=== PATIENT | female | born 1940 | race Caucasian/White ===

== ENCOUNTER 2016-12-30 08:47 | Emergency (ER) | payer MEDICARE ==
[2016-12-30] MEDS ORDERED: Ondansetron ODT 4 MG TAB ONE (09:31)
[2016-12-30] MEDS ORDERED: oxyCODONE/Acetaminophen 5 mg/325 mg Tablet PO SCH (09:45)
--- NOTE | 2016-12-30 10:21 | RAD ---
4 VIEWS RIGHT KNEE: Date: 12/30/16 HISTORY: Trauma. Pain. COMPARISON: None. FINDINGS: There is severe tricompartmental degenerative change. There is diffuse bone demineralization. Vascul ar calcifications are noted. No acute fractures. IMPRESSION: 1. Severe tricompartmental degenerative change. 2. Diffuse bone demineralization. 3. Atherosclerosis. POS: [facility]
--- NOTE | 2016-12-30 10:22 | RAD ---
RIGHT ANKLE 3 VIEWS: Date: 12/30/16 HISTORY: Fall. Pain. COMPARISON: None. FINDINGS: There is diffuse bone demineralization. Vascular calcifications are identified. Ankle mortise is int act. No fracture. IMPRESSION: No fracture. POS: [facility]
--- NOTE | 2016-12-30 10:22 | RAD ---
RIGHT TIBIA AND FIBULA 2 VIEWS: Date: 12/30/16 HISTORY: Fall. Pain. COMPARISON: None. FINDINGS: There is diffuse bone demineralization. Vascular calcifications are noted. No fracture. No cortical irregularity or periosteal reaction. IMPRESSION: No fracture. POS: [facility]
== END 2016-12-30 10:41 | disposition home or self-care (01) ==
LOC: ERS 08:47
DX: M25.561 Pain in right knee (principal); I10 Essential (primary) hypertension; W18.30XA Fall on same level, unspecified, initial encounter
CPT/HCPCS: Q0162

== ENCOUNTER 2017-01-28 15:12 | Emergency (ER) | payer MEDICARE ==
--- NOTE | 2017-01-28 16:29 | RAD ---
RIGHT HIP 2 VIEWS: Date: 01/28/17 HISTORY: Pain. Fall. FINDINGS: Internal fixation hardware is identified. No complicated process or loosening. Post-traumatic changes from remote injury are noted. Old right inferior superior as well as left inferior pubic rami fractu res are identified. Vascular calcifications are noted. IMPRESSION: No post-traumatic change. POS: [facility]
== END 2017-01-28 17:00 | disposition home or self-care (01) ==
LOC: ERS 15:12
DX: S70.01XA Contusion of right hip, initial encounter (principal); I10 Essential (primary) hypertension; W01.0XXA Fall on same level from slipping, tripping and stumbling without subsequent striking against object, initial encounter; Z79.82 Long term (current) use of aspirin; Z79.899 Other long term (current) drug therapy; Y92.000 Kitchen of unspecified non-institutional (private) residence as the place of occurrence of the external cause

== ENCOUNTER 2017-02-04 08:33 | Outpatient (CLI) | payer MEDICARE ==
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
[2017-02-04] MEDS ORDERED: Iopamidol 370 76% 50 ML VIAL FS ONE (13:54)
[2017-02-04] MEDS ORDERED: Iopamidol 370 76% 100 ML VIAL ONE (13:54)
== END 2017-02-04 08:34 | disposition home or self-care (01) ==
LOC: CT 08:33
PROVIDERS: ATTEND Internal Medicine
DX: R63.0 Anorexia (principal); R29.6 Repeated falls; R53.83 Other fatigue; N28.89 Other specified disorders of kidney and ureter; N26.1 Atrophy of kidney (terminal); K57.30 Diverticulosis of large intestine without perforation or abscess without bleeding; Z98.890 Other specified postprocedural states
CPT/HCPCS: 74177

== ENCOUNTER 2017-03-22 11:17 | Day surgery (SDC) | payer MEDICARE ==
[2017-03-21 11:08] VITALS: BMI 18.3
[2017-03-22] MEDS ORDERED: Fentanyl 100 MCG/2 ML VIAL ONE (12:50)
[2017-03-22] MEDS ORDERED: PHENYLEPHRINE-NS 100 MCG/ML 10 ML SYRINGE ONE (13:22)
--- NOTE | 2017-03-22 17:41 | RAD ---
GASTROGRAFIN SWALLOW 03/22/17 HISTORY: Esophageal stenosis at 15 cm, status post dilatation. Evaluate for leak. FINDINGS: A gastrografin swallow was performed. Esophageal motility is normal. The contrast passed from the eso phagus into the stomach without difficulty. There is no evidence of leak of the contrast. No signific ant narrowing was appreciated on this exam. IMPRESSION: No evidence of leak of contrast from the esophagus. POS: [facility]
--- NOTE | 2017-03-22 18:18 | OP ---
SURGEON: Leo Prince M.D. PREPROCEDURE DIAGNOSES: 1. Abnormal weight loss of 15 pounds. 2. Colon cancer screening. POSTPROCEDURE DIAGNOSES: 1. Exam to cecum; adequate bowel preparation. 2. Mildly tortuous colon. 3. No polyps or neoplasms identified. 4. Small internal hemorrhoids. 5. Otherwise normal colonoscopy. PROCEDURE IN DETAIL: Written informed consent was obtained. Upon completion of the EGD, the patient was repositioned for the colonoscopy. A digital rectal exam was performed which revealed a small ex ternal skin tag. A Pentax video colonoscope was inserted through the anal canal and advanced under d irect visualization to the cecum. Position in the cecum was verified by clear identification of the appendiceal orifice and the ileocecal valve. The quality of the bowel preparation was adequate. Eac h colon segment was examined carefully as the colonoscope was slowly withdrawn from the cecum. Vascu lar pattern and haustral folds appeared normal. No polyp, diverticulum or neoplasm was identified. The colon was mildly tortuous throughout. The colonic mucosa appeared grossly intact. In the rectum , a retroflexed view demonstrated small internal hemorrhoids that were not actively bleeding. The co gee was decompressed as the colonoscope was removed from the patient. She was transferred to the day stay surgery area for post-procedure monitoring. RECOMMENDATIONS: 1. See EGD recommendations for further treatment plans. 2. Due to age and absence of colon polyps on this exam, I would not recommend another screening colo noscopy in 10 years.
--- NOTE | 2017-03-22 18:38 | OP ---
DATE OF PROCEDURE: 03/22/2017 TITLE OF PROCEDURE: Attempted esophagogastroduodenoscopy. PREOPERATIVE DIAGNOSES: 1. Abnormal weight loss. 2. 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 POSTOPERATIVE DIAGNOSES: 1. Exam to upper esophagus at 15 cm from the incisors. 2. Luminal narrowing at 15 cm, likely due to extensive scar tissue from previous surgeries for her s ubglottic stenosis. 3. Unable to safely traverse the stenotic area at 15 cm. 4. Complete EGD was not performed due to the stenosis. Procedure was prematurely terminated. PROCEDURE IN DETAIL: Written and informed consent was obtained. The patient was brought to the endo scopy suite. Total intravenous anesthesia was provided by Ms. Jelena Obrien CRNA. The patient was placed in the left lateral decubitus position. A bite block was inserted into the mouth. A Pent ax video diagnostic gastroscope was introduced into the oral cavity and attempt was made to intubate the esophagus. Due to significant luminal narrowing, presumably from scar tissue of her previous tra cheal surgeries, the endoscope could not be safely advanced distal to 15 cm. Because the lumen was n ot well visualized distal to this point, dilation was not attempted. The procedure was prematurely t erminated. The endoscope was completely withdrawn from the patient, and the bite block was removed. She was then repositioned for the planned colonoscopy. There were no immediate complications. RECOMMENDATIONS: 1. Obtain a barium esophagram to further delineate area of luminal narrowing in the upper esophagus. 2. Proceed with colonoscopy.
== END 2017-03-22 13:00 | disposition home or self-care (01) ==
LOC: SDC 11:17
PROVIDERS: ATTEND Internal Medicine Gastroenterology
PROC: 0DJD8ZZ Inspection of Lower Intestinal Tract, Via Natural or Artificial Opening Endoscopic (ICD-10-PCS; principal; 2017-03-22)
PROC: 0DJ08ZZ Inspection of Upper Intestinal Tract, Via Natural or Artificial Opening Endoscopic (ICD-10-PCS; 2017-03-22)
DX: R63.4 Abnormal weight loss (principal); K64.8 Other hemorrhoids; K22.2 Esophageal obstruction; L40.50 Arthropathic psoriasis, unspecified; I10 Essential (primary) hypertension; Z79.899 Other long term (current) drug therapy; Z91.048 Other nonmedicinal substance allergy status; Z96.1 Presence of intraocular lens; Z96.7 Presence of other bone and tendon implants; Z90.89 Acquired absence of other organs; Z98.890 Other specified postprocedural states
CPT/HCPCS: 74220; J3010

== ENCOUNTER 2017-04-03 10:39 | Outpatient (CLI) | payer MEDICARE ==
--- NOTE | 2017-04-03 14:42 | RAD ---
UPPER GI WITH SMALL BOWEL FOLLOW THROUGH. COMPARISON: 03/22/17. HISTORY: Abnormal weight loss. FINDINGS: A double-contrast upper GI and small bowel follow through were performed. Esophageal motility is nor mal. There is no evidence of esophageal stricture. The stomach is normal in appearance without mucosal abnormality. There is a moderate amount of gastr oesophageal reflux seen during the examination. The contrast passes from the stomach into the duodenum without difficulty. The contrast passes into the normal-appearing small bowel loops. The contrast passes through the small bowel loops into the r ight colon by 3 hours. No significant small bowel abnormality is seen. IMPRESSION: 1. Gastroesophageal reflux disease. 2. No significant small bowel abnormality. POS: [facility]
== END 2017-04-03 10:40 | disposition home or self-care (01) ==
LOC: RAD 10:39
PROVIDERS: ATTEND Physician Assistant Medical
DX: R63.4 Abnormal weight loss (principal); J38.6 Stenosis of larynx; K21.9 Gastro-esophageal reflux disease without esophagitis
CPT/HCPCS: 74249

== ENCOUNTER 2017-05-07 08:22 | Emergency (ER) | payer MEDICARE ==
[2017-05-07] MEDS ORDERED: Ondansetron ODT 4 MG TAB ONE (09:06)
--- NOTE | 2017-05-07 09:16 | RAD ---
LEFT WRIST THREE VIEWS: History: Wrist pain. FINDINGS: There is a predominately transverse but mildly comminuted fracture of the distal radius. Mild displac ement. There is also a fracture of the distal ulna which appears to represent an old healed fracture as call us formation is noted at this site. The ulnar styloid has been fractured and is ununited, age indeter minate. IMPRESSION: 1. Evidence of acute fracture of the distal radius. 2. Evidence of old healed fracture of the distal ulna. 3. Fracture of the ulnar styloid, age indeterminate. POS: [facility]
== END 2017-05-07 09:23 | disposition home or self-care (01) ==
LOC: ERS 08:22
DX: S52.502A Unspecified fracture of the lower end of left radius, initial encounter for closed fracture (principal); S52.612A Displaced fracture of left ulna styloid process, initial encounter for closed fracture; I10 Essential (primary) hypertension; Z79.82 Long term (current) use of aspirin; Z79.891 Long term (current) use of opiate analgesic; Z79.899 Other long term (current) drug therapy; W19.XXXA Unspecified fall, initial encounter
CPT/HCPCS: 29125; Q0162

== ENCOUNTER 2017-10-16 10:08 | Outpatient (CLI) | payer MEDICARE | END 2017-10-16 10:09 | disposition home or self-care (01) | LOC: BICMAMMO 10:08 | PROVIDERS: ATTEND Internal Medicine | DX: Z12.31 Encounter for screening mammogram for malignant neoplasm of breast (principal) | CPT/HCPCS: 77063; 77067 ==

== ENCOUNTER 2017-12-06 11:29 | Outpatient (CLI) | payer MEDICARE ==
--- NOTE | 2017-12-06 12:40 | RAD ---
LEFT RIB SERIES 3 VIEWS: INDICATION: History of fall with pain. FINDINGS: There is mild left pleural fluid. No discrete left rib fracture is seen. IMPRESSION: 1. No left rib fracture identified. 2. Mild left pleural fluid. POS: [facility]
--- NOTE | 2017-12-06 13:47 | RAD ---
2 VIEW CHEST: Date: 12/06/17 INDICATION: Pain. FINDINGS: There is a mild left pleural effusion. Interstitial prominence of the lungs with hyperinflation prese nt indicating COPD. Tracheostomy is in place. Cardiac silhouette is upper limits of normal in size. T here is partial visualization of fracture lucency at the lateral left clavicle. IMPRESSION: 1. COPD. 2. Mild left pleural effusion. 3. Left clavicular fracture. POS: [facility]
--- NOTE | 2017-12-06 13:48 | RAD ---
LEFT SHOULDER 3 VIEWS: INDICATION: Limited range of motion, fall with pain. FINDINGS: There is a left humeral prosthesis. No acute hardware complication is identified. There is lucency about the articulation at the scapular glenoid, likely chronic from pseudoarticulation with the prost hetic humeral head. There is a minimally displaced fracture at the lateral left clavicle. Incidenta l minimally displaced left rib fractures are present. IMPRESSION: Minimally displaced left lateral clavicular fracture. Minimally displaced left rib fractures. Telephone call of findings placed to Dr. Zoie Patino at the time of interpretation. POS: [facility]
== END 2017-12-06 11:30 | disposition home or self-care (01) ==
LOC: BICRAD 11:29
PROVIDERS: ATTEND Internal Medicine
DX: T84.89XA Other specified complication of internal orthopedic prosthetic devices, implants and grafts, initial encounter (principal); S42.032A Displaced fracture of lateral end of left clavicle, initial encounter for closed fracture; S22.42XA Multiple fractures of ribs, left side, initial encounter for closed fracture; J44.9 Chronic obstructive pulmonary disease, unspecified; Z79.899 Other long term (current) drug therapy; Z91.81 History of falling
CPT/HCPCS: 71046

== ENCOUNTER 2018-01-07 14:35 | Outpatient (CLI) | payer MEDICARE ==
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
--- NOTE | 2018-01-07 16:00 | RAD ---
PA AND LATERAL VIEWS CHEST: 01/07/18 HISTORY: Chest pain. Dyspnea. FINDINGS: The heart size is normal. There is a tracheostomy tube. The lungs are well expanded without lobar con solidation, pneumothoraces or pleural effusions. Small left pleural effusion noted on 12/06/17 has res olved. Chronic changes in the lung tatum are again seen. IMPRESSION: No acute cardiopulmonary process. POS: [facility]
--- NOTE | 2018-01-07 16:01 | RAD ---
LEFT CLAVICLE TWO VIEWS: 01/07/18 HISTORY: Chest pain. FINDINGS/IMPRESSION: There is incompletely healed fracture involving the distal clavicle compared to exam of 12/06/17. No significant change in alignment is seen. A left humeral prosthesis is present. POS: [facility]
--- NOTE | 2018-01-07 16:02 | RAD ---
LEFT SHOULDER THREE VIEWS: 01/07/18 HISTORY: Chest pain, left shoulder pain. FINDINGS/IMPRESSION: Comparison made with exam of 12/06/17. Left humeral head prosthesis remains in place. The fracture involving the distal clavicle is again se en with incomplete healing. POS: [facility]
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
== END 2018-01-07 14:36 | disposition home or self-care (01) ==
LOC: BICRAD 14:35
PROVIDERS: ATTEND Internal Medicine
DX: R07.9 Chest pain, unspecified (principal); R06.00 Dyspnea, unspecified; M81.0 Age-related osteoporosis without current pathological fracture; S42.402D Unspecified fracture of lower end of left humerus, subsequent encounter for fracture with routine healing; Z98.890 Other specified postprocedural states; V43.52XA Car driver injured in collision with other type car in traffic accident, initial encounter
CPT/HCPCS: 71046

== ENCOUNTER 2018-06-27 17:08 | Observation (INO) | payer MEDICARE ==
[~2018-06-27 17:08] MED LIST: Dexamethasone 20 MG/5 ML VIAL ONE; Ketorolac Tromethamine 30 MG/ML VIAL ONE; Lidocaine 1% PF 5 ML VIAL ONE; Ondansetron PF 4 MG/2 ML Vial ONE; PROPOFOL 200 MG/20 ML VIAL ONE; ePHEDrine 50 MG/ML VIAL ONE
[2018-06-27] MEDS ORDERED: Fentanyl 100 MCG/2 ML VIAL ONE ×5 (17:17→23:19)
[2018-06-27] MEDS ORDERED: CEFAZOLIN 1 GM VIAL ONE ×2 (17:53)
[2018-06-27 17:57] LABS: #Basophils 0.1 thou/uL (0.0-0.2); #Eosinphils 0.2 thou/uL (0.0-0.7); #Lymphocytes 2.3 thou/uL (1.20-3.40); #Monocytes 0.7 thou/uL (0.11-0.59); #Neutrophils 5.9 thou/uL (1.40-6.50); %Basophils 0.9 % (0.0-1.0); %Eosinophils 2.1 % (0.0-10.0); %Neutrophils 64.1 % (42.0-75.0); Hemoglobin 11.3 g/dL (12.0-16.0); Mean Corpuscular HGB CONC 33.8 g/dL (32.0-36.0); Mean Corpuscular Hemoglobin 31.8 pg (27.0-31.0); Mean Corpuscular Volume 94.2 fL (78.0-98.0); Mean Platelet Volume 7.2 fL (7.4-10.4); Platelet Count 542 thou/uL (130-400); RBC Distribution Width 13.5 % (11.5-14.5); Red Blood Cell (RBC) Count 3.56 mill/uL (4.20-5.40); White Blood Cell (WBC) Count 9.2 thou/uL (4.8-10.8)
[2018-06-27 18:04] LABS: PTT 26.1 SEC (22.9-36.1); Prothrombin Time 13.2 SEC (12.0-14.7)
[2018-06-27 18:25] LABS: ALT (SGPT) 11 U/L (8-55); AST (SGOT) 18 U/L (5-34); Albumin 4.2 g/dL (3.4-4.8); Alkaline Phosphatase 125 U/L (40-150); Anion Gap 14 mmol/L (10-20); BUN (Urea Nitrogen) 13 mg/dL (9.8-20.1); Bilirubin, Total 0.2 mg/dL (0.2-1.2); Calc. Creatinine Clearance 0 mL/min (70-130); Calcium 9.4 mg/dL (7.8-10.44); Carbon Dioxide 24 mmol/L (23-31); Chloride 101 mmol/L (98-107); Estimated GFR-MDRD 74; Globulin 2.4 g/dL (2.4-3.5); Glucose 109 mg/dL (83-110); Protein, Total 6.6 g/dL (6.0-8.3); Sodium 135 mmol/L (136-145)
--- NOTE | 2018-06-27 18:48 | RAD ---
PORTABLE CHEST ONE VIEW: 06/27/18 at 5:26 p.m. HISTORY: Fall. FINDINGS: Comparison made with exam of 01/07/18. The aorta is tortuous. Tracheostomy tube and left humeral head prosthesis are again seen. The heart s ize is normal. The aorta is tortuous. The lungs are expanded without focal areas of consolidation, pn eumothoraces, or pleural effusions. IMPRESSION: No acute process. POS: [facility]
[2018-06-27] MEDS ORDERED: Neomycin-Polymyxin 1 ML AMP ONE ×2 (19:08→19:48)
--- NOTE | 2018-06-27 19:38 | RAD ---
PORTABLE LEFT FOREARM ONE VIEW: 06/27/18 HISTORY: Trauma. There is an open fracture involving the distal radius and ulna. There are transverse mildly comminute d fractures involving the distal diaphysis of the radius and ulna. There is evidence of overriding fr agments and dorsal displacement of the distal fragments. The proximal fragments appear to break the s kin along the ventral surface. IMPRESSION: Mildly comminuted but predominantly transverse displaced open fractures distal radius and ulna. POS: [facility]
[2018-06-27] MEDS ORDERED: Famotidine/PF 20 mg/2ml Vial ONE (19:40)
[2018-06-27] MEDS ORDERED: Bupivacaine HCl 0.5%/Epinephrine 1:200,000/PF 30 ml Vial ONE (22:18)
[2018-06-27] MEDS ORDERED: Morphine 4 MG/ML VIAL SLOW IVP PRN (22:53)
[2018-06-27] MEDS ORDERED: Ondansetron PF 4 MG/2 ML Vial IVP PRN (22:53)
[2018-06-27] MEDS ORDERED: HYDROcodone/Acetaminophen 10/325 mg Tablet PO PRN (22:53)
[2018-06-27] MEDS ORDERED: traMADol HCl 50 MG TAB PO PRN (22:53)
[2018-06-27] MEDS ORDERED: Promethazine HCl 25 MG/ML VIAL IM PRN (22:54)
[2018-06-27] MEDS ORDERED: Ondansetron HCl/PF 4 MG/2 ML Vial IVP PRN (22:54)
[2018-06-27] MEDS ORDERED: Promethazine HCl 25 MG/ML VIAL SLOW IVP PRN (22:54)
[2018-06-27] MEDS ORDERED: Communication Order-Pharmacy FS SCH (23:00)
[2018-06-28 00:28] VITALS: BMI 21.4
[2018-06-28] MEDS: CEFAZOLIN 2 GM in Premix Bag 1 BAG IVPB SCH ×2 (03:23→12:46)
--- NOTE | 2018-06-28 04:55 | OP ---
DATE OF PROCEDURE: 06/27/2018 PREOPERATIVE DIAGNOSIS: Open left distal radius and ulna shaft fractures. POSTOPERATIVE DIAGNOSIS: Open left distal radius and ulna shaft fractures. PROCEDURES: 1. Irrigation and debridement of the left distal forearm. 2. Open reduction and internal fixation of the left distal radius and ulna. SURGEON: Dr. Lawrence Duarte. ANESTHESIA: General. TECHNIQUE: The patient had been given IV antibiotics in the emergency room. She was taken to the operating room. Satisfactory general anesthesia was performed. The left upper extremity was sterilely prepped and draped in the usual fashion. The patient was noted to have loss of motion in most of her joints including the shoulder, elbow and wrist secondary to psoriatic arthritis. The distal shaft of the ulna was protruding through the skin. An incision was made longitudinally, proximally and distally. The ulna and the ulnar aspect of the forearm were copiously irrigated with antibiotic solution using the high-speed rib sawyer. Additional incision was made on the volar radial aspect of the forearm over the distal radius. The radial artery was retracted radially and the flexor carpi radialis was retracted ulnarly. The volar aspect of the radius was periosteally elevated. The patient had some comminution in the radius as well as the ulna at the fractures. The fractures were completely off. They were manipulated, reduced and then internally fixed with a Synthes distal radial plate using 5-hole plate and 2.7 cortical screws and 2.7 locking screws. C-arm verified adequate alignment of the fracture and proper placement of the plate and screws. The ulna was then reduced and internally fixed using a 5-hole 3rd tubular plate and using 2.7 locking screws and 2.7 cortical screws. Once the fractures were stabilized in good position, the wounds again were copiously irrigated and closed using 2-0 Vicryl for the fat and subcutaneous tissues and the skin was closed with 3-0 Rapide. The wounds were then infiltrated with a total of 20 mL of 0.5% Marcaine with epinephrine. Sterile dressing was applied and patient was placed in a volar splint. TOTAL TOURNIQUET TIME: 120 minutes. ESTIMATED BLOOD LOSS: 150 mL. COMPLICATION: None. Job ID: [id number]
[2018-06-28 08:00] VITALS: TEMP 98.3
[2018-06-28] MEDS ORDERED: Aspirin 81 mg Enteric Coated Tablet PO SCH (09:00)
[2018-06-28] MEDS ORDERED: TETANUS AND DIPHTHERIA TOX/PF 0.5 ML DISP.SYRIN IM SCH (09:00)
[2018-06-28] MEDS ORDERED: Prevnar 13-Val Conj/PF 0.5 ML SYRINGE IM ONE (09:00)
--- NOTE | 2018-06-28 10:04 | RAD ---
LEFT WRIST 3 VIEWS: Date: 06/27/18 HISTORY: Intraoperative films. FINDINGS: A series of C-arm films show open reduction and internal fixation of distal radial and ulnar fracture with plate and screws. IMPRESSION: Open reduction and internal fixation of distal radial and ulnar fractures. POS: [facility]
[2018-06-28 11:54] VITALS: BP 125/67
--- NOTE | 2018-06-29 01:43 | DIS ---
DATE OF ADMISSION: 06/27/2018 DATE OF DISCHARGE: 06/28/2018 HISTORY OF PRESENT ILLNESS: Ms. Shah is a 78-year-old right-handed white female, who lives at home. She has psoriatic arthritis and has severe arthritis in pretty much all of her joints. The patient fell and had immediate deformity in the left forearm and wrist area with open fracture with ulna protruding through the skin. HOSPITAL COURSE: The patient was initially seen in the emergency room. She was given IV antibiotics. She was taken to the operating room, where she underwent irrigation, debridement, open reduction and internal fixation of the distal radius and ulna. She was placed in a splint, admitted for IV antibiotics and pain control. By the following day, the patient was able to control the pain with p.o. medication. The left hand had significant numbness in the ulnar nerve distribution prior to surgery and she states that it is feeling better this morning. Physical Therapy worked with the patient. The patient was able to independently get out of bed and was very stable. The patient remained afebrile. Vital signs remained stable. DISCHARGE DIAGNOSIS: Open distal radius and ulnar shaft fractures of the left forearm. DISCHARGE MEDICATIONS: 1. Bactrim DS one p.o. b.i.d., #14. 2. Tramadol 50 mg one every 6 hours as needed for pain, #50. FOLLOWUP: Follow up in my office in 6 days. DISCHARGE INSTRUCTIONS: The patient was asked to keep the left arm elevated and perform gentle range of motion of her fingers of the left hand. She will be provided with an arm sling. Job ID: [id number]
== END 2018-06-28 14:51 | disposition home or self-care (01) ==
LOC: ERS 17:08 → SDC/OP 19:18 → SJJU 23:02
PROVIDERS: ADMIT Orthopaedic Surgery; ATTEND Orthopaedic Surgery
PROC: 0PSJ04Z Reposition Left Radius with Internal Fixation Device, Open Approach (ICD-10-PCS; principal; 2018-06-27)
PROC: 0PSL04Z Reposition Left Ulna with Internal Fixation Device, Open Approach (ICD-10-PCS; 2018-06-27)
DX: S59.202A Unspecified physeal fracture of lower end of radius, left arm, initial encounter for closed fracture (principal); S52.252A Displaced comminuted fracture of shaft of ulna, left arm, initial encounter for closed fracture; I10 Essential (primary) hypertension; L40.50 Arthropathic psoriasis, unspecified; Z79.2 Long term (current) use of antibiotics; Z79.899 Other long term (current) drug therapy; Z93.0 Tracheostomy status; Z91.048 Other nonmedicinal substance allergy status; W19.XXXA Unspecified fall, initial encounter; Y92.009 Unspecified place in unspecified non-institutional (private) residence as the place of occurrence of the external cause
CPT/HCPCS: 25545; 25607; 71045; 73090; 73110; 80053; 85025; 85610; 85730; 86850; 86900; 86901; 93005; 96365; 96366; 96375; 96376; 99285; C1713 ×5; G0378; 36415; 90471; 90670; G0009; J0131; J0670; J0690; J1100; J1885; J2001; J2405; J2704; J3010; J3490; S0028

== ENCOUNTER 2018-11-27 12:38 | Outpatient (CLI) | payer MEDICARE ==
--- NOTE | 2018-11-27 13:58 | RAD ---
CHEST TWO VIEWS: HISTORY: Dyspnea. COMPARISON: 06/27/2018 FINDINGS: Tracheostomy tube in place. Biapical pleural thickening with minimal chronic appearing linear and int erstitial markings bilaterally. Heart size is normal. Stable left total shoulder replacement. IMPRESSION: Stable chronic changes. No significant new process. POS: [facility]
== END 2018-11-27 12:39 | disposition home or self-care (01) ==
LOC: RAD 12:38
PROVIDERS: ATTEND Internal Medicine Critical Care Medicine
DX: R06.00 Dyspnea, unspecified (principal)
CPT/HCPCS: 71046

== ENCOUNTER 2018-12-24 13:50 | Outpatient (CLI) | payer MEDICARE ==
--- NOTE | 2018-12-24 14:43 | BD ---
EXAM: Bone densitometry using DEXA HISTORY: 78 yo female. Screening for postmenopausal osteoporosis FINDINGS: L1--bone mineral density 0.760 g/sq cm; T score -2.1 ; Z score 0.2 L2--bone mineral density 0.940 g/sq cm; T score -0.8 ; Z score 1.7 L3--bone mineral density 1.108 g/sq cm; T score 0.2 ; Z score 2.9 L4--bone mineral density 0.942 g/sq cm; T score -1.1 ; Z score 1.6 Total L1-L4--bone mineral density 0.937 g/sq cm; T score -1.0 ; Z score 1.6 Left femoral neck--bone mineral density0.550; T score -2.7 ; Z score -0.5 Total proximal left femur--bone mineral density 0.682; T score -2.1 ; Z score -0.2 The 10 year fracture risk for a major osteoporotic fracture is 24% and for a hip fracture is 8.4%. IMPRESSION: Osteoporosis
--- NOTE | 2018-12-24 16:41 | MMO ---
Bilateral MAMMO Bilat Screen [facility]. CLINICAL HISTORY: Patient is 78 years old and is seen for screening. The patient has the following family history of breast cancer: cousin female. The patient has no personal history of cancer. VIEWS: The views performed were: bilateral craniocaudal with tomosynthesis; bilateral mediolateral oblique with tomosynthesis; and bilateral exaggerated craniocaudal. FILMS COMPARED: The present examination has been compared to prior imaging studies performed at [facility] on 01/01/2014, 02/19/2015, 07/20/2016 and 10/16/2017. This study has been interpreted with the assistance of computer-aided detection. MAMMOGRAM FINDINGS: The breasts are heterogeneously dense, which could obscure a lesion on mammography. There are benign appearing calcifications seen in both breasts. There are no suspicious masses, suspicious calcifications, or new areas of architectural distortion. IMPRESSION: THERE IS NO MAMMOGRAPHIC EVIDENCE OF MALIGNANCY. A ROUTINE FOLLOW-UP MAMMOGRAM IN 1 YEAR IS RECOMMENDED. THE RESULTS OF THIS EXAM WERE SENT TO THE PATIENT. ACR BI-RADS Category 2 - Benign finding MAMMOGRAPHY NOTE: 1. A negative mammogram report should not delay a biopsy if a dominant of clinically suspicious mass is present. 2. Approximately 10% to 15% of breast cancers are not detected by mammography. 3. Adenosis and dense breasts may obscure an underlying neoplasm. Reported by: DELILAH GERMAN MD Electonically Signed: [id number]
== END 2018-12-24 13:51 | disposition home or self-care (01) ==
LOC: BICMAMMO 13:50
PROVIDERS: ATTEND Internal Medicine Rheumatology
DX: Z12.31 Encounter for screening mammogram for malignant neoplasm of breast (principal); M81.0 Age-related osteoporosis without current pathological fracture; Z80.3 Family history of malignant neoplasm of breast
CPT/HCPCS: 77063; 77067; 77080

== ENCOUNTER 2020-02-29 14:53 | Outpatient (CLI) | payer MEDICARE ==
--- NOTE | 2020-02-29 15:45 | BD ---
DEXA BONE MINERAL DENSITY STUDY: HISTORY: Osteoporosis screening. COMPARISON: Bone DEXA scan of 2019. FINDINGS: Lumbar Spine: BMD (g/cm2) L1 0.964 T-Score: -0.2 2.1 L2 1.099 T-Score: 0.6 3.2 L3 1.248 T-Score: 1.5 4.2 L4 1.105 T-Score: 0.4 3.2 L1-L4 1.106 T-Score: 0.5 3.2 Change from the comparison is +18%, statistically significant. Femoral Neck: 0.535 T-Score: -2.8 -0.6 Total Femur: 0.665 T-Score: -2.3 -0.3 Change from the comparison is -2.5%. WHO classification: Osteoporosis. Ten-year fracture risk: Major osteoporotic fracture 55% and hip fracture 47%. Impression: Osteoporosis with elevated fracture risk as above. POS: [facility]
== END 2020-02-29 14:54 | disposition home or self-care (01) ==
LOC: BICMAMMO 14:53
PROVIDERS: ATTEND Internal Medicine Rheumatology
DX: M81.0 Age-related osteoporosis without current pathological fracture (principal)
CPT/HCPCS: 77080

== ENCOUNTER 2020-04-15 13:14 | Outpatient (CLI) | payer MEDICARE ==
--- NOTE | 2020-04-15 15:20 | CT ---
CTA NECK: Axial tomograms obtained with multiplanar reconstruction and 3D post processing. INDICATION: Carotid artery stenosis noted on outside study. COMPARISON: There are no comparison exams. FINDINGS: No evidence of stenosis at the origin of the arch vessels. Mild atherosclerotic change is seen in kaye th common carotid arteries with mild stenosis in the distal left common carotid artery. No evidence of hemodynamically significant stenosis in either common carotid. There is dense calcified plaque in the left bulb and proximal left ICA. This results in significant stenosis of the proximal left internal carotid artery. The degree of stenosis is difficult to accura tely calculate due to the dense calcified plaque which does produce CT artifact. The degree of steno sis appears high-grade at the origin of the left internal carotid artery and is estimated in the 90% range by NASCET criteria. The left internal carotid artery above the bulb is unremarkable. There is mild calcified plaque in the right bulb and right proximal ICA; however, no significant sten osis identified in the right extracranial internal carotid artery. The vertebral arteries are patent and symmetric. Soft tissue attenuation reveals a dominant mass in the right lobe of the thyroid which measures up to 1.2 cm. There is a tracheostomy device in place. There are moderately severe degenerative changes in the cervical spine and there are posterior spondy litic changes producing mild cord compression at C4-5 and C5-6 with foraminal stenosis. IMPRESSION: 1. Evidence of high-grade stenosis involving the origin of the left internal carotid artery. Recomm end catheter angiogram with DSA for more accurate evaluation. 2. A dominant nodule involving the right lobe of the thyroid. Recommend further evaluation with ult rasound if this has not been previously evaluated. POS: [facility]
== END 2020-04-15 13:15 | disposition home or self-care (01) ==
LOC: BICCT 13:14
PROVIDERS: ATTEND Internal Medicine Cardiovascular Disease
DX: I65.23 Occlusion and stenosis of bilateral carotid arteries (principal); E04.1 Nontoxic single thyroid nodule
CPT/HCPCS: 70498; 82565

== ENCOUNTER 2020-05-26 14:15 | Inpatient (IN) | payer MEDICARE ==
[2020-05-31] MEDS ORDERED: Fentanyl 100 MCG/2 ML VIAL ONE ×3 (06:29→10:19)
[2020-05-31] MEDS ORDERED: Midazolam HCl 2 mg/2 ml Vial ONE (06:29)
[2020-05-31] MEDS ORDERED: Phenylephrine 10 MG/ML VIAL ONE (06:29)
[2020-05-31] MEDS ORDERED: Dexamethasone 4 mg/ml Vial ONE (06:31)
[2020-05-31] MEDS ORDERED: Bupivacaine PF 0.5% 30 ML VIAL ONE (06:31)
[2020-05-31] MEDS ORDERED: Heparin 5,000 UNITS/ML VIAL ONE (06:31)
[2020-05-31] MEDS ORDERED: Protamine Sulfate 50 MG/5 ML VIAL ONE (06:31)
[2020-05-31] MEDS ORDERED: EPINEPHrine 1 MG/ML AMP ONE (06:31)
[2020-05-31] MEDS ORDERED: Glycopyrrolate 0.2 MG/ML 5 ML SYRINGE ONE (07:30)
[2020-05-31] MEDS ORDERED: Rocuronium Bromide 10 MG/ML (10ML VIAL) ONE (07:30)
[2020-05-31] MEDS ORDERED: Dexamethasone 20 MG/5 ML VIAL ONE (07:30)
[2020-05-31] MEDS ORDERED: Ketorolac Tromethamine 30 MG/ML VIAL ONE (07:30)
[2020-05-31] MEDS ORDERED: Ondansetron PF 4 MG/2 ML Vial ONE (07:30)
[2020-05-31] MEDS ORDERED: PROPOFOL 200 MG/20 ML VIAL ONE (07:30)
[2020-05-31] MEDS ORDERED: Lidocaine 1% PF 5 ML VIAL ONE (07:30)
[2020-05-31] MEDS ORDERED: Acetaminophen 325 MG TAB PO PRN (11:05)
[2020-05-31] MEDS ORDERED: Methotrexate Sodium 2.5 MG TAB PO SCH (11:05)
[2020-05-31] MEDS ORDERED: Phenylephrine 40 MG in Sodium Chloride 0.9% 250 ML 250 ML IVPB PRN (11:05)
[2020-05-31] MEDS ORDERED: Ondansetron PF 4 MG/2 ML Vial IVP PRN (11:05)
[2020-05-31] MEDS ORDERED: Non-Formulary Item 1 EACH (Teriparatide [Forteo] 2.4 ML Pen.Injctr) SC SCH (11:05)
[2020-05-31] MEDS ORDERED: Non-Formulary Item 1 EACH (Apremilast [Otezla] 30 MG Tablet) PO SCH (11:05)
[2020-05-31] MEDS ORDERED: hydrALAZINE 20 MG/ML VIAL SLOW IVP PRN (11:05)
[2020-05-31] MEDS ORDERED: Fentanyl 100 MCG/2 ML VIAL SLOW IVP PRN (11:05)
[2020-05-31 11:45] VITALS: BMI 22.3
[2020-05-31] MEDS: traMADol HCl 50 MG TAB PO PRN (12:12)
[2020-05-31] MEDS: Aspirin 325 mg Enteric Coated Tablet PO SCH (12:16)
[2020-05-31] MEDS: busPIRone HCl 5 MG TAB PO SCH ×2 (12:17→21:13)
[2020-05-31] MEDS: Bupropion 150 MG XL TAB PO SCH (12:17)
[2020-05-31] MEDS: Clopidogrel Bisulfate 75 MG TAB PO SCH (12:18)
[2020-05-31] MEDS: Citalopram 20 MG TAB PO SCH (12:18)
[2020-05-31] MEDS: Losartan 25 MG TAB PO SCH (12:19)
[2020-05-31] MEDS: Sodium Chloride 0.9% 1,000 ML IV SCH ×2 (12:19→21:22)
[2020-05-31] MEDS: Docusate Sodium 100 MG/10 ML UDCUP PO SCH (12:19)
[2020-05-31] MEDS ORDERED: oxyCODONE/Acetaminophen 5 mg/325 mg Tablet PO PRN (12:27)
[2020-05-31 12:30] VITALS: BP 118/45
[2020-05-31] MEDS ORDERED: Simethicone Chewable 80 MG TAB PO PRN (13:00)
[2020-05-31] MEDS: CEFAZOLIN 2 GM in Premix Bag 1 BAG IVPB SCH ×2 (13:44→21:12)
[2020-05-31] MEDS ORDERED: Folic Acid 1 MG TAB PO SCH (21:00)
[2020-05-31] MEDS ORDERED: Montelukast Sodium 10 mg Tablet PO SCH (21:00)
[2020-05-31] MEDS ORDERED: DULoxetine 60 MG CAP PO SCH (21:00)
[2020-05-31] MEDS ORDERED: Atorvastatin Calcium 10 MG TAB PO SCH (21:00)
[2020-05-31] MEDS: Famotidine 20 MG TAB PO SCH (21:13)
[2020-06-01] MEDS: traMADol HCl 50 MG TAB PO PRN (04:48)
[2020-06-01] MEDS: CEFAZOLIN 2 GM in Premix Bag 1 BAG IVPB SCH (06:12)
[2020-06-01] MEDS: Sodium Chloride 0.9% 1,000 ML IV SCH (08:43)
[2020-06-01] MEDS: Bupropion 150 MG XL TAB PO SCH (08:47)
[2020-06-01] MEDS: Citalopram 20 MG TAB PO SCH (08:48)
[2020-06-01] MEDS: busPIRone HCl 5 MG TAB PO SCH (08:48)
[2020-06-01] MEDS: Clopidogrel Bisulfate 75 MG TAB PO SCH (08:49)
[2020-06-01] MEDS: Losartan 25 MG TAB PO SCH (08:50)
[2020-06-01] MEDS: Docusate Sodium 100 MG/10 ML UDCUP PO SCH (08:50)
[2020-06-01] MEDS: Famotidine 20 MG TAB PO SCH (08:52)
[2020-06-01] MEDS ORDERED: Aspirin Chewable 81 MG TAB PO SCH (09:00)
[2020-06-01] MEDS: Aspirin 325 mg Enteric Coated Tablet PO SCH (09:21)
[2020-06-01 10:24] VITALS: TEMP 98.7
== END 2020-06-01 11:00 | disposition home or self-care (01) | DRG 36 ==
LOC: SURG A 05-31 06:10 → CCU 05-31 11:52 → EDSTATUS 05-31 14:15
PROVIDERS: ADMIT Thoracic Surgery (Cardiothoracic Vascular Surgery); ATTEND Thoracic Surgery (Cardiothoracic Vascular Surgery)
PROC: 037J3DZ Dilation of Left Common Carotid Artery with Intraluminal Device, Percutaneous Approach (ICD-10-PCS; principal; 2020-05-31)
PROC: B344ZZ3 Ultrasonography of Left Common Carotid Artery, Intravascular (ICD-10-PCS; 2020-05-31)
PROC: 0B21XFZ Change Tracheostomy Device in Trachea, External Approach (ICD-10-PCS; 2020-05-31)
DX: I65.22 Occlusion and stenosis of left carotid artery (principal); I10 Essential (primary) hypertension; Z20.822 Contact with and (suspected) exposure to COVID-19; M81.0 Age-related osteoporosis without current pathological fracture; Z79.82 Long term (current) use of aspirin; Z93.0 Tracheostomy status
CPT/HCPCS: 76000; C1725; C1876; C1884; J0171; J0690; J1100; J1642; J1644; J1885; J2250; J2370; J2405; J2704; J2720; J3010; S0020

== ENCOUNTER 2020-05-26 14:17 | Outpatient (CLI) | payer MEDICARE ==
[2020-05-26 15:44] LABS: Hemoglobin 10.9 g/dL (12.0-15.5); Mean Corpuscular HGB CONC 33.4 g/dL (32.0-36.0); Mean Corpuscular Hemoglobin 33.6 pg (27.0-33.0); Mean Corpuscular Volume 100.6 fl (81.6-98.3); Mean Platelet Volume 10.8 fl (7.4-10.4); Platelet Count 424 10x3/uL (150-450); RBC Distribution Width 14.8 % (11.5-14.5); Red Blood Cell (RBC) Count 3.24 10x6/uL (3.90-5.03); White Blood Cell (WBC) Count 7.6 10x3/uL (3.5-10.5)
[2020-05-26 16:03] LABS: Anion Gap 14 mmol/L (10-20); BUN (Urea Nitrogen) 21 mg/dL (9.8-20.1); Calc. Creatinine Clearance 0 mL/min (70-130); Calcium 9.9 mg/dL (7.8-10.44); Carbon Dioxide 25 mmol/L (23-31); Chloride 101 mmol/L (98-107); Glucose 103 mg/dL (83-110); Potassium 4.5 mmol/L (3.5-5.1); Sodium 135 mmol/L (136-145)
[2020-05-27 04:29] LABS: SARS-CoV-2 PCR by NAA Not Detected (NotDetected)
== END 2020-05-26 14:18 | disposition home or self-care (01) ==
LOC: LABBT 14:17
PROVIDERS: ATTEND Thoracic Surgery (Cardiothoracic Vascular Surgery)
DX: Z01.812 Encounter for preprocedural laboratory examination (principal); Z20.822 Contact with and (suspected) exposure to COVID-19; I65.22 Occlusion and stenosis of left carotid artery
CPT/HCPCS: 80048; 85027; U0003; U0005; 87635

== ENCOUNTER 2020-06-21 13:55 | Outpatient (CLI) | payer MEDICARE | END 2020-06-21 13:56 | disposition home or self-care (01) | LOC: BICULT 13:55 | PROVIDERS: ATTEND Otolaryngology Plastic Surgery within the Head & Neck | DX: E04.2 Nontoxic multinodular goiter (principal) | CPT/HCPCS: 76536 ==